=== PATIENT | female | born 1965 | race Caucasian/White ===

== ENCOUNTER 2018-03-06 08:13 | Day surgery (SDC) | payer OTHER ==
[2018-03-01 14:02] VITALS: BMI 32.9
[2018-03-06] MEDS ORDERED: PROPOFOL 20 ML ONE (08:52)
[2018-03-06] MEDS ORDERED: LIDOCAINE HCL/PF 2% SDV 5ML VIAL ONE (08:52)
[2018-03-06] MEDS ORDERED: METOPROLOL TARTRATE 5 MG/5 ML VIAL ONE (09:09)
[2018-03-06 09:31] VITALS: TEMP 98.2
[2018-03-06 09:52] VITALS: BP 145/89; PULSE 62
--- NOTE | 2018-03-08 17:32 | PATH ---
Surgical Pathology Report Patient Name: CALIN SILVEIRA [facility]. Rec. #: [id number] /Age/Gender: 1965 (Age: 52) / F Account: [id number] Location: [facility] Taken: 03/06/2018 Received: 03/06/2018 Reported: 03/08/2018 Physicians: Manolo Tee M.D. Specimen(s) Received A: BX DUODENUM B: BX ANTRUM C: BX ESOPHAGUS Clinical History Peptic ulcer disease Postoperative diagnosis: Normal Final Diagnosis A. DUODENUM, BIOPSY: DUODENUM MUCOSA WITH NO DIAGNOSTIC ABNORMALITIES. NO HISTOLOGIC EVIDENCE OF CELIAC DISEASE. B. ANTRUM, BIOPSY: GASTRIC MUCOSA WITH CHRONIC GASTRITIS. IMMUNOSTAIN FOR H. PYLORI IS NEGATIVE. NEGATIVE FOR INTESTINAL METAPLASIA. C. ESOPHAGUS, BIOPSY: ESOPHAGEAL MUCOSA WITH NO DIAGNOSTIC ABNORMALITIES. NO HISTOLOGIC EVIDENCE OF EOSINOPHILIC ESOPHAGITIS. NEGATIVE FOR INTESTINAL METAPLASIA. Electronically Signed Betty Thornton M.D. Gross Description A. Received in formalin, labeled "duodenum" are 2 epstein, irregular portions of soft tissue measuring 0.4 and 0.5 cm. in greatest dimension. The specimens are submitted in toto in one cassette. B. Received in formalin, labeled "antrum" are 2 epstein, irregular portions of soft tissue measuring 0.3 and 0.4 cm. in greatest dimension. The specimens are submitted in toto in one cassette. C. Received in formalin, labeled "esophagus" is a epstein, irregular portion of soft tissue measuring 0.3 cm. in greatest dimension. The specimen is submitted in toto in one cassette. 03/07/2018 saudi03/07/2018
== END 2018-03-06 09:55 | disposition home or self-care (01) ==
LOC: FASU-ENDO 08:13
PROVIDERS: ATTEND Internal Medicine Gastroenterology
PROC: 0DB68ZX Excision of Stomach, Via Natural or Artificial Opening Endoscopic, Diagnostic (ICD-10-PCS; 2018-03-06)
PROC: 0DB58ZX Excision of Esophagus, Via Natural or Artificial Opening Endoscopic, Diagnostic (ICD-10-PCS; 2018-03-06)
PROC: 0DB98ZX Excision of Duodenum, Via Natural or Artificial Opening Endoscopic, Diagnostic (ICD-10-PCS; principal; 2018-03-06 09:04)
DX: K29.50 Unspecified chronic gastritis without bleeding (principal); R10.13 Epigastric pain
CPT/HCPCS: 88305-TC; 88342-TC